=== PATIENT | male | born 1945 | race Caucasian/White ===

== ENCOUNTER → 2025-03-28 10:21 | Outpatient (REF) | payer MEDICARE, OTHER, SELFPAY ==
[2025-03-28 11:48] LABS: Hematocrit 38.8 % (39.0-52.0); Hemoglobin 12.8 g/dL (13.0-18.0); Mean Corpuscular Hgb 31.2 pg (27.0-31.0); Mean Corpuscular Volume 94.6 fL (80.0-94.0); Mean Platelet Volume 10.8 fL (7.4-10.4); Platelet Count 142 10^3/uL (130-400); Red Cell Dist. Width 12.7 % (11.5-14.5); White Blood Cell Count 5.4 10^3/uL (4.8-10.8)
[2025-03-28 14:33] LABS: Blood Urea Nitrogen 17 mg/dl (9-20); Calcium 8.5 mg/dl (8.4-10.2); Carbon Dioxide 25 mmol/L (22-30); Chloride 108 mmol/L (98-107); Glucose 167 mg/dl (70-99); Potassium 4.5 mmol/L (3.5-5.1); Sodium 141 mmol/L (135-145); eGFR > 60.00
== END ==
LOC: SDSPAT 10:21
PROVIDERS: ATTENDING PHYSICIAN Surgery; FAMILY PHYSICIAN Family Medicine
DX: Z01.818 Encounter for other preprocedural examination (principal)
CPT/HCPCS: 36415; 80048; 85027

== ENCOUNTER → 2025-03-28 11:03 | Outpatient (REF) | payer MEDICARE, OTHER, SELFPAY | LOC: RAD 11:03 | PROVIDERS: ATTENDING PHYSICIAN Surgery | DX: K43.2 Incisional hernia without obstruction or gangrene (principal) | CPT/HCPCS: 74176 ==

== ENCOUNTER 2025-04-11 06:24 | Day surgery (SDC) | payer MEDICARE, OTHER, SELFPAY ==
[2025-03-28 14:22] VITALS: BMI 32.4
[2025-04-11] VITALS (10 sets, daily range): BP systolic 152–190; BP diastolic 69–121; BMI 32.4
[2025-04-11 08:25] LABS: Glucose - Point of Care 177 mg/dl (70-99)
--- NOTE | 2025-04-11 08:28 | HP.FOC2 ---
Focused History & Physical
Chief Complaint
HPI:
Chief Complaint: Recurrent umbilical hernia
HPI / Indication for Planned Procedure: Patient is an 80-year-old male who has had 4 previous attempts at umbilical herniorrhaphy, all open approach dating back to 2012.
He has recently noticed recurrent swelling along the superior left aspect of his previous surgical scar and repair. Outpatient evaluation confirmed the presence of a reducible recurrent hernia which was also visualized on CT imaging. He presents
today for scheduled operative correction.
Relevant Past Medical History: Other (BPH, A-fib/flutter, GERD, elevated cholesterol, and IDDM, sleep apnea, peripheral neuropathy)
Relevant Social History: Negative
Relevant Family History: Negative
Relevant Past Surgical History: Positive for (Bilateral cataracts, laser eye, umbilical hernia repair x 4, bilateral total knee replacement, L4-5 laminectomies, left inguinal hernia repair, cardiac catheterization)
Review of Systems
Review of Pertinent Systems: All Systems Negative
Medication
See Medication form for detailed medications: Yes
Medication List (including Herbals & OTC):
celecoxib 100 mg capsule 100 mg PO BID 11/21/20
metoprolol tartrate 100 mg tablet 100 mg PO BID 11/21/20
multivitamin 1 ea PO DAILY 11/21/20
omeprazole 20 mg capsule,delayed release 20 mg PO DAILY 11/21/20
pioglitazone 45 mg tablet 45 mg PO DAILY 11/21/20
repaglinide 1 mg tablet 2 mg PO MEALS 11/21/20
simvastatin 20 mg tablet 20 mg PO DAILY 11/21/20
tamsulosin 0.4 mg capsule 0.4 mg PO DAILY 11/21/20
acetaminophen 500 mg tablet (Tylenol Extra Strength) 500 mg PO Q4HPRN PRN back pain 11/22/20
apixaban 5 mg tablet (Eliquis) 5 mg PO BID ##0 11/22/20
cephalexin 500 mg tablet 500 mg PO .BEFORE DENTAL PROC 11/22/20
isosorbide mononitrate 30 mg tablet,extended release 24 hr 30 mg PO DAILY #1 tab 11/22/20
famotidine 40 mg tablet 40 mg PO DAILY 04/04/25
finasteride 5 mg tablet 5 mg PO HS 04/04/25
furosemide 20 mg tablet 20 mg PO DAILY 04/04/25
glucosamine sulf dipot chlr,msm,chond 550 mg-C 30 mg-mayda 1 mg capsule (Glucosamine Chondroitin) 1 cap PO DAILY 04/04/25
latanoprost (PF) 0.005 % eye drops in a dropperette 1 drp ophthalmic (eye) QPM 04/04/25
pddded-etvrunyn-rdeoked 12,000-38,000-60,000 unit capsule,delayed rel (Creon) 1 cap PO QID 04/04/25
losartan 50 mg tablet 50 mg PO BID 04/04/25
magnesium glycinate 1 dose PO DAILY 04/04/25
timolol 0.5 % eye drops 1 drp ophthalmic (eye) BID 04/04/25
Medications Reviewed: Yes
Allergies and Reactions
Patient has Allergies: Yes
Noted Allergies and Reactions:
Allergy/AdvReac Type Severity Reaction Status Date / Time
diltiazem Allergy Unknown Rash Verified 04/04/25 12:47
Pertinent Physical Exam
All Other Systems: Negative
Head/Neck: Normal
Lungs: Normal
Heart: Normal
Abdomen: Other (Diastasis, vertical midline surgical scar in the periumbilical region to the left of midline, reducible recurrent umbilical hernia)
Extremities: Normal
Neurological: Normal
Diagnosis / Assessment
80-year-old male presenting for scheduled operative correction multiply recurrent umbilical hernia
Plan / Procedure
Robotic assisted laparoscopic repair recurrent umbilical hernia with mesh; possible removal of previously placed hernia mesh.
Anesthesia/Sedation to be done by Anesthesia Provider: Yes
--- NOTE | 2025-04-11 08:32 | W.SUR.PREOP ---
Pre-Operative Surgical Note
-
I have examined this patient prior to the performance of the scheduled procedure.
The patient's condition is unchanged from the time of the current History and
Physical and the patient is able to undergo the scheduled procedure.
[2025-04-11] MEDS: TYLENOL 1000 MG PO (08:34)
[2025-04-11] MEDS: NORMOSOL-R/PLASMALYTE-A 1000 IV (08:34)
--- NOTE | 2025-04-11 11:38 | W.IMMPOSTOP ---
Addendum entered and electronically signed by Len Gutierrez MD 04/11/25 11:57:
#[id number]
Original Note:
Surgical Immed Post Op Note
-
Primary Surgeon: Len Gutierrez MD
Assisting Surgeon: Ivet DAWSON
Pre-op Diagnosis: Recurrent umbilical hernia
Post-op Diagnosis: Recurrent umbilical hernia; 5 cm
Procedure Performed: Robotic assisted laparoscopic repair recurrent umbilical hernia with mesh; Ventralight ST 16 cm x 15 cm IPUM
Anesthesia Type: GETA +0.25% Marcaine
Specimen / Cultures: None
Estimated Blood Loss: 6 mL
Complications: None immediate
Operative Findings:
--Well incorporated previously placed hernia mesh without adhesions or mesh contracture. Recurrent umbilical hernia along the superior left margin with additional smaller defects along the right lateral aspect encompassing 5 cm in total length.
--Closure of fascial defects with 0 PDS Stratafix.
--Previously placed mesh left in position as did not affect this repair.
--Central abdominal wall fat pad circumferentially taken down with preperitoneal mobilization onto the right lateral abdominal wall for mesh placement.
--Ventralight ST 16 cm x 15 cm oriented vertically. Secured circumferentially with 2-0 PDS Stratafix spiral x 2
--Peritoneal flap closed just to the left of midline with partial mesh (central aspect and right side) able to be placed preperitoneal. Peritoneal flap closed with 2-0 PDS STRATAFIX spiral which also fixated mesh to left central anterior abdominal
wall.
[2025-04-11 11:40] LABS: Glucose - Point of Care 178 mg/dl (70-99)
[2025-04-11] MEDS: DILAUDID 0.25 MG IV ×2 (11:49→12:05)
[2025-04-11] MEDS: ROXICODONE 5 MG PO (13:11)
== END 2025-04-11 14:12 | disposition home or self-care (01) ==
LOC: SDS 06:24
PROVIDERS: ATTENDING PHYSICIAN Surgery
DX: K43.2 Incisional hernia without obstruction or gangrene (principal); K42.9 Umbilical hernia without obstruction or gangrene
CPT/HCPCS: 49615; 82962; C1781